=== PATIENT | female | born 1970 | race Caucasian/White ===

== ENCOUNTER 2024-07-05 01:13 | Emergency (ER) | payer OTHER ==
[~2024-07-05] VITALS: Ht 149.9 cm; Wt 36.3 kg
[2024-07-05 01:21] VITALS: BP_SYST 142; PULSE 140; RESP 20; TEMP 103; O2SAT 95
[2024-07-05] MEDS ORDERED: ONDANSETRON HCL 4 MG/2 ML VIAL ONE (01:29)
[2024-07-05] MEDS ORDERED: MORPHINE 4 MG INJ. 4 MG/ML VIAL IVP ONE (01:30)
[2024-07-05] MEDS: ONDANSETRON HCL 4 MG/2 ML VIAL IVP ONE (01:39)
[2024-07-05] MEDS: NS 1000 ML IV.SOLN IV ONE (01:45)
[2024-07-05] MEDS ORDERED: HYDROmorphone 1 MG/ML INJ. CARTRIDGE IVP ONE (01:45)
[2024-07-05] MEDS: MORPHINE 4 MG INJ. 4 MG/ML VIAL IVP ONE ×2 (01:46→01:55)
[2024-07-05] MEDS: metroNIDAZOLE 500 mg/NS 100 ML IV ONE (02:10)
[2024-07-05] MEDS: cefTRIAXone 1 GM IVPB PREMIX 50 ML IV ONE (02:13)
[2024-07-05] MEDS: ACETAMINOPHEN 500 MG TABLET PO ONE (02:14)
[2024-07-05] MEDS: HYDROmorphone 1 MG/ML INJ. CARTRIDGE IVP ONE ×2 (02:15→05:42)
[2024-07-05 02:33] LABS: BLOOD GAS PCO2 14.4 mmHg (35.0-45.0); BLOOD GAS PH 7.446 (7.350-7.450)
[2024-07-05 02:34] LABS: ABG O2 SAT% ESTIMATE 95.9 % (94.0-100.0); BLOOD GAS BASE EXCESS -12.2 mmol/L (-3.0-3.0); BLOOD GAS HCO3 9.7 mmol/L (21.0-27.0)
[2024-07-05 02:44] LABS: ALANINE AMINOTRANSFERASE 7 U/L (12-78); ALBUMIN 1.5 g/dL (3.4-4.8); ANION GAP 13 (5-15); ASPARTATE AMINOTRANSFERASE 19 U/L (10-37); BASOPHILS % (AUTO) 0.4 % (0.0-2.0); BILIRUBIN,DIRECT 0.4 mg/dL (0.0-0.3); CALCIUM 7.3 mg/dL (8.4-11.0); CARBON DIOXIDE 13 mmol/L (23-29); CHLORIDE 109 mmol/L (98-107); CREATININE 0.61 mg/dL (0.55-1.30); GFR AFRICAN AMERICAN 132 mL/min (>90); GLUCOSE 107 mg/dL (74-106); LIPASE 25 U/L (16-77); MEAN CORPUSCULAR VOLUME 83 fL (79.0-98.0); POTASSIUM 3.2 mmol/L (3.5-5.1); SODIUM SERUM 135 mmol/L (136-145); TOTAL BILIRUBIN 0.8 mg/dL (0.0-1.0); TOTAL PROTEIN, SERUM 4.4 g/dL (6.4-8.3); UREA NITROGEN, BLOOD 16 mg/dL (8-21)
[2024-07-05 02:45] LABS: GFR NON AFRICAN-AMERICAN 109 mL/min (>90)
[2024-07-05 02:52] LABS: EOSINOPHILS % (AUTO) 0.1 % (0.0-4.0); LYMPHOCYTES % (AUTO) 18.9 % (20.5-51.5); MEAN CORPUSCULAR HEMOGLOBIN 27 pg (27-31); MEAN CORPUSCULAR HGB CONC 33 % (32-36); MONOCYTES # (AUTO) 0.5 K/uL (0.0-1.0); MONOCYTES % (AUTO) 4.9 % (1.7-9.3); NEUTROPHILS # (AUTO) 7.9 K/uL (1.8-7.7); NEUTROPHILS % (AUTO) 75.7 % (40.0-70.0); PLATELET COUNT (AUTO) 163 K/uL (130-430); RED BLOOD CELL COUNT(AUTO) 3.61 MIL/uL (4.2-6.2); WHITE BLOOD COUNT (AUTO) 10.4 K/uL (4.8-10.8)
[2024-07-05 02:53] LABS: HEMOGLOBIN 9.9 g/dL (12.0-16.0)
[2024-07-05] MEDS ORDERED: iohexoL 350 mgI/mL, 100 ML INFUS..BTL IV ONE (03:02)
[2024-07-05 03:07] LABS: INR 1.2 (0.8-1.2); PROTHROMBIN TIME 12.3 SECS (9.5-12.5)
[2024-07-05 03:18] LABS: BILIRUBIN,URINE NEGATIVE (NEGATIVE); BLOOD, URINE NEGATIVE (NEGATIVE); COLOR,URINE YELLOW (YELLOW); GLUCOSE,URINE NEGATIVE (NEGATIVE); KETONES,URINE NEGATIVE (NEGATIVE); LEUKOCYTE ESTERASE ,URINE NEGATIVE (NEGATIVE); NITRITE, URINE NEGATIVE (NEGATIVE); PH,URINE 6.5 (5.0-8.0); PROTEIN URINE 1+ (NEGATIVE); UROBILINOGEN,URINE 0.2 (0.2-1.0)
[2024-07-05 03:47] LABS: COVID19 ANTIGEN SOFIA FIA NEGATIVE (NEGATIVE)
[2024-07-05 03:56] LABS: INFLUENZA TYPE A Negative (NEGATIVE); INFLUENZA TYPE B NEGATIVE (NEGATIVE)
[2024-07-05 03:58] LABS: CLARITY/URINE HAZY (CLEAR)
[2024-07-05 03:59] LABS: BACTERIA,URINE FEW /HPF (None Seen); RBC,URINE 0-3 /HPF (0-3); WBC,URINE 0-3 /HPF (0-3)
[2024-07-05] MEDS: AZITHROMYCIN 500 MG in NS 250 ML IV ONE (04:02)
[2024-07-05] MEDS ORDERED: AZITHROMYCIN 500 MG/VIAL (ZITHROMAX) IV ONE (04:04)
[2024-07-05] MEDS: NACL 0.9% 1,000 ML IV ONE (05:13)
[2024-07-05 08:05] VITALS: BP_SYST 113; PULSE 76; RESP 13; TEMP 99.2; O2SAT 96
== END 2024-07-05 08:05 | disposition left against medical advice (07) ==
LOC: SED 01:13
DX: A41.9 Sepsis, unspecified organism (principal); K81.9 Cholecystitis, unspecified; R50.9 Fever, unspecified; R07.89 Other chest pain; R10.9 Unspecified abdominal pain; R00.0 Tachycardia, unspecified; Z20.822 Contact with and (suspected) exposure to COVID-19; Z93.4 Other artificial openings of gastrointestinal tract status; Z90.49 Acquired absence of other specified parts of digestive tract; Z85.048 Personal history of other malignant neoplasm of rectum, rectosigmoid junction, and anus
CPT/HCPCS: 99291; 71275; 96365; 96375; 71045; 96367; 96361; 87426; 80076; 80048; 81001; 83690; 85025; 85610; 85730; 86886; 86900; 86901; 87040; 87086; 87186; 84484; 36415; 93005; 74175; 36600; 82803; 96368; 96376; 83605; 87804 ×2; 72191; 74176; Q9967; J0456; J0696; J3490; J2405; J1170; J2270; J7030; 81000; 81015